=== PATIENT | male | born 1980 | race Two or more races ===

== ENCOUNTER 2018-08-10 12:08 | Outpatient (CLI) | payer OTHER | END 2018-08-10 12:22 | disposition home or self-care (01) | LOC: LAB 12:08 | DX: J11.1 Influenza due to unidentified influenza virus with other respiratory manifestations (principal); A49.3 Mycoplasma infection, unspecified site ==

== ENCOUNTER 2019-07-19 10:02 | Emergency (ER) | payer OTHER ==
[~2019-07-19] VITALS: Ht 177.8 cm; Wt 83.9 kg
== END 2019-07-19 12:48 | disposition home or self-care (01) ==
LOC: ER 10:02
DX: B34.9 Viral infection, unspecified (principal)

== ENCOUNTER 2019-08-26 09:16 | Outpatient (CLI) | payer OTHER | END 2019-08-26 09:20 | disposition home or self-care (01) | LOC: RAD 09:16 → LAB 09:16 → RAD 09:20 | DX: M54.5 Low back pain (principal); M54.6 Pain in thoracic spine; M54.2 Cervicalgia ==

== ENCOUNTER 2019-10-19 16:05 | Outpatient (CLI) | payer OTHER | END 2019-10-19 16:14 | disposition home or self-care (01) | LOC: SONOGRAMA 16:05 | PROVIDERS: ATTEND General Practice | DX: R39.16 Straining to void (principal); N21.9 Calculus of lower urinary tract, unspecified; N31.8 Other neuromuscular dysfunction of bladder ==

== ENCOUNTER 2020-10-03 10:05 | Outpatient (CLI) | payer OTHER | END 2020-10-03 10:17 | disposition home or self-care (01) | LOC: TOM 10:05 | PROVIDERS: ATTEND Urology | DX: R31.29 Other microscopic hematuria (principal) ==

== ENCOUNTER → 2021-01-29 10:41 | Outpatient (CLI) | payer OTHER | END | disposition home or self-care (01) | LOC: LAB 10:41 | PROVIDERS: ATTEND Urology | DX: N20.0 Calculus of kidney (principal) ==